=== PATIENT | male | born 1940 | race Caucasian/White ===

== ENCOUNTER 2017-07-31 19:14 | Inpatient (IN) | payer OTHER, MEDICARE ==
[~2017-07-31] VITALS: Ht 175.3 cm; Wt 71.9 kg
--- NOTE | 2017-07-31 19:27 | ED CARDIAC/CP/PALPITATIONS ---
History of Present Illness General Chief Complaint: Chest Pain Stated Complaint: SIB KELSEY FOR CHEST PAIN Source: patient, family Exam Limitations: no limitations Vital Signs & Intake/Output Vital Signs & Intake/Output Vital Signs Date Time Temp Pulse Resp B/P B/P Pulse O2 O2 Flow FiO2 Mean Ox Delivery Rate 08/01 1927 96.8 66 18 133/62 96 Room Air Allergies Coded Allergies: NO KNOWN ALLERGIES (08/22/15) Triage Nurses Notes Reviewed? yes Onset: Abrupt Duration: minute(s): Timing: recent history Quality/Severity: moderate, severe Location: central Radiation: neck Activities at Onset: none Prior Chest Pain/Card Workup: heart attack Nitro Today/Relief: 0.4 mg x 1, provided at home Associated Symptoms: dizziness HPI: 77-year-old gentleman history of coronary artery disease, status post multiple heart attacks, status post 7 stents, presents with several episodes of chest pain that began yesterday. He states that the chest discomfort is central and radiates to his neck. This morning he had an episode that was 8 out of 10 radiating to his neck, associated with dizziness and relieved completely with nitroglycerin sublingual 1. He noted several smaller episodes that self resolved. These episodes were precipitated with minimal exertion. He also noted several episodes of dizziness, especially when he stood up. Presently he has no chest pain, shortness of breath, fever, chills. He is otherwise well. Past History Travel History Traveled to [place] past 21 day No Medical History Any Pertinent Medical History? see below for history Cardiovascular: CAD Pneumonia Vaccine: 12/05/06 Influenza Vaccine: 12/05/06 Surgical History Surgical History: non-contributory Psychosocial History Who do you live with Spouse Services at Home None What is your primary language [place]orese Family History Hx Contributory? No Review of Systems Review of Systems Constitutional: Reports: no symptoms. EENTM: Reports: no symptoms. Respiratory: Reports: no symptoms. Cardiovascular: Reports: no symptoms. GI: Reports: no symptoms. Genitourinary: Reports: no symptoms. Musculoskeletal: Reports: no symptoms. Skin: Reports: no symptoms. Neurological/Psychological: Reports: no symptoms. Hematologic/Endocrine: Reports: no symptoms. Immunologic/Allergic: Reports: no symptoms. All Other Systems: Reviewed and Negative Physical Exam Physical Exam Cardiovascular: regular rate/rhythm Comments: Review of Systems - except as otherwise noted in HPI Physical Exam Physical Exam General Appearance: well developed/nourished, no apparent distress Head: atraumatic, normal appearance Eyes: Bilateral: normal appearance. Ears, Nose, Throat: normal pharynx, normal ENT inspection Neck: normal inspection, supple, full range of motion Respiratory: normal breath sounds, chest non-tender, no respiratory distress, quiet respiration, lungs clear Cardiovascular: regular rate/rhythm Gastrointestinal: normal bowel sounds, soft, non-tender, no organomegaly Back: normal inspection, normal range of motion Extremities: normal inspection, normal capillary refill, normal range of motion, no edema Neurologic/Psych: no motor/sensory deficits, awake, alert, oriented x 3 Skin: intact, normal color, warm/dry Core Measures ACS in differential dx? Yes CVA/TIA Diagnosis No Sepsis Present: No Sepsis Focused Exam Completed? No Progress Differential Diagnosis: AMI, unstable angina Plan of Care: Orders Procedure Date/time Status Nothing by Mouth 08/01 B Active Saline Lock 07/31 2109 Active Misc Message 07/31 2109 Active ED Holding Orders 07/31 2109 Active Admit to inpatient 07/31 2109 Active Vital Signs 07/31 2109 Active Code Status 07/31 2109 Active Add-on Test (ER Only) 07/31 1937 Active PROTHROMBIN TIME 07/31 1934 Complete TROPONIN LEVEL 07/31 1924 Complete LIPASE 07/31 1924 Complete HEPATIC FUNCTION PANEL 07/31 1924 Complete D-DIMER 07/31 1924 Complete CBC WITHOUT DIFFERENTIAL 07/31 1924 Complete BASIC METABOLIC PANEL 07/31 1924 Complete AMYLASE 07/31 1924 Complete EKG 07/31 1914 Active Laboratory Tests 07/31/171934: Anion Gap 9, Estimated GFR > 60, BUN/Creatinine Ratio 22.5, Glucose 211 H, Calcium 8.9, Total Bilirubin 0.4, Direct Bilirubin 0.2, AST 21, ALT 32, Alkaline Phosphatase 79, Troponin I 0.09, Total Protein 6.0 L, Albumin 3.4 L, Amylase 63, Lipase 122, PT 13.1 H, INR 1.20 H, D-Dimer High Sensitivty 275 H, CBC w Diff NO MAN DIFF REQ, RBC 4.04 L, MCV 96.7 H, MCH 32.1 H, MCHC 33.2, RDW 14.6 H, MPV 8.5, Gran % 64.9, Lymphocytes % 18.1 L, Monocytes % 14.0 H, Eosinophils % 2.7, Basophils % 0.3, Absolute Granulocytes 3.8, Absolute Lymphocytes 1.1 L, Absolute Monocytes 0.8 H, Absolute Eosinophils 0.2, Absolute Basophils 0 Diagnostic Imaging: Viewed by Me: Radiology Read. Discussed w/RAD: Radiology Read. CXR Impression: PATIENT: DYLAN HERNANDEZ PRESENT AGE: 77 PATIENT ACCOUNT NO: [id number] : 39 LOCATION: [facility] ORDERING PHYSICIAN: Ernesto Ralph MD SERVICE DATE: 07/31/17 EXAM TYPE: RAD - XRY- PORTABLE CHEST XRAY EXAMINATION: XR PORTABLE CHEST CLINICAL INFORMATION: Chest pain COMPARISON: 11/24/[address] scan TECHNIQUE: Portable AP view of the chest was obtained. FINDINGS: The cardiac size and mediastinal silhouette are within normal limits. Left pectoral dual-lead cardiac pacer is in place with leads projecting over the right atrium and right ventricle. Atherosclerotic calcifications of the aortic arch noted. There is increased pulmonary interstitial markings, predominantly in the subpleural areas and more in the lower lungs, which corresponds with the interstitial lung disease. Considering the differences in technique, the findings are fairly similar to November 2015 CT scan. There is no focal pulmonary consolidation. No pleural effusion. No pneumothorax. The visualized bony thorax is unremarkable. IMPRESSION: Interstitial lung disease without evidence of acute superimposed focal pulmonary consolidation. DICTATED BY: Diana Pierson MD DATE/TIME DICTATED:07/31/171957 LOSS PREVENTION RESEARCH ENGINEER:SWATHI DATE/TIME TRANSCRIBED:07/31/171957 CONFIDENTIAL, DO NOT COPY WITHOUT APPROPRIATE AUTHORIZATION. <Electronically signed in Other Vendor System> SIGNED BY: Diana Pierson MD 07/31/172004 Initial ED EKG: paced Departure Departure Disposition: STILL A PATIENT Condition: Stable Clinical Impression Primary Impression: Unstable angina Referrals: Clay HOLMAN,Dipak Lawson (PCP/Family) Departure Forms: Customer Survey General Discharge Information Comments 07/31/17, 21:06... discussed with dr. damico who affirms plan for admission. Admission Note Spoke With: Adri Navarro MD Documentation of Exam: Documentation of any treatments & extenuating circumstances including Concerns Regarding Discharge (functional status, medication knowledge or non-compliance, living conditions, etc.) that warrant an admission rather than observation: pt with known cad, s/p NC, stents, presenting with nitro responsive chest pain, merits admission for serial trops/ekgs, cards eval in am. pt is chest pain free in ED. Critical Care Note Critical Care Note Critical Care Time: non-applicable
--- NOTE | 2017-07-31 20:05 | RADIOLOGY REPORT ---
EXAMINATION: XR PORTABLE CHEST CLINICAL INFORMATION: Chest pain COMPARISON: 11/24/[address] scan TECHNIQUE: Portable AP view of the chest was obtained. FINDINGS: The cardiac size and mediastinal silhouette are within normal limits. Left pectoral dual-lead cardiac pacer is in place with leads projecting over the right atrium and right ventricle. Atherosclerotic calcifications of the aortic arch noted. There is increased pulmonary interstitial markings, predominantly in the subpleural areas and more in the lower lungs, which corresponds with the interstitial lung disease. Considering the differences in technique, the findings are fairly similar to November 2015 CT scan. There is no focal pulmonary consolidation. No pleural effusion. No pneumothorax. The visualized bony thorax is unremarkable. IMPRESSION: Interstitial lung disease without evidence of acute superimposed focal pulmonary consolidation.
[2017-07-31 20:18] LABS: PT 13.1 SEC (9.4-12.5)
[2017-07-31 20:31] LABS: ABSOLUTE BASOPHIL COUNT 0 /CUMM (0.0-0.2); ABSOLUTE EOSINOPHIL COUNT 0.2 /CUMM (0.0-0.7); ABSOLUTE GRANULOCYTE CT 3.8 /CUMM (1.4-6.5); ABSOLUTE LYMPH COUNT 1.1 /CUMM (1.2-3.4); ABSOLUTE MONOCYTE COUNT 0.8 /CUMM (0.10-0.60); BASOPHIL % 0.3 % (0.0-2.0); EOSINOPHIL % 2.7 % (0-5); GRANULOCYTE % 64.9 % (42.2-75.2); HEMATOCRIT 39.1 % (42-52); MEAN CORPUSCULAR HGB 32.1 PG (27.0-31.0); MEAN CORPUSCULAR HGB CONC 33.2 G/DL (33.0-37.0); MEAN CORPUSCULAR VOLUME 96.7 FL (80.0-94.0); MEAN PLATELET VOLUME 8.5 FL (7.4-10.4); PLATELET COUNT 135 /CUMM (130-400); RBC DISTRIBUTION WIDTH 14.6 % (11.5-14.5); RED BLOOD CELL CT 4.04 /CUMM (4.70-6.10); WHITE BLOOD CELL COUNT 5.9 /CUMM (4.8-10.8)
--- NOTE | 2017-07-31 23:04 | History & Physical ---
Codie HOLMAN,[facility] 07/31/17 6811: General Information and HPI History of Present Illness: Mr. Brown is a 69-year-old male with past medical history of coronary artery disease status post 3-4 MIs with 7 stents and pacemaker 3-4 months ago followed by Dr. Alonso and interstitial lung disease followed by Dr. Lewis who presents with chest pain. Patient says that for the past 2-3 weeks he has been getting pressure in his chest with exertion that radiates to his neck and is relieved by nitroglycerin. He gets this about 1-3 times per day. He also has some associated shortness of breath, a little pain, including in his jaw. He did not call his vp communications to report these conditions but wanted to get checked out before his trip on Tuesday. He reports some mucus in his throat but no abdominal pain, nausea, vomiting, diarrhea, dysuria, fever, chills, or palpitations. He normally goes to [place] for his hospitalizations and was last there 3 years ago. He is a former smoker and denies alcohol or drug use. He is a family history significant for myocardial infarctions at young ages. Allergies/Medications Allergies: Coded Allergies: NO KNOWN ALLERGIES (08/22/15) Home Med list Atorvastatin Calcium (Lipitor) 80 MG TABLET 1 TAB PO DAILY HLD (Reported) Citalopram Hydrobromide (Citalopram HBr) 20 MG TABLET 1 TAB PO DAILY Depression (Reported) Clopidogrel Bisulfate (Plavix) 75 MG TABLET 1 TAB PO DAILY HEART (Reported) Insulin NPL/Insulin Lispro (Humalog Mix 75-25 Vial) (Unknown Strength) VIAL ( Unknown Dose) DM (Reported) Isosorbide Mononitrate (Isosorbide Mononitrate ER) 30 MG TAB.ER.24H 1 TAB PO DAILY ANGINA (Reported) Lisinopril 10 MG TABLET 1 TAB PO DAILY HTN (Reported) Metoprolol Tartrate (Lopressor) 50 MG TABLET 1 TAB PO BID HTN (Reported) Start tonight The patient takes 50mg AT night and 75mg in the morning Pioglitazone HCl (Actos) 30 MG TABLET 1 TAB PO DAILY DM (Reported) Past History Travel History Traveled to [place] past 21 day No Medical History Cardiovascular: CAD Respiratory: pulmonary fibrosis Musculoskeletal: osteoarthritis Endocrine: diabetes Cancer(s): bladder cancer Pneumonia Vaccine: 12/05/06 Influenza Vaccine: 12/05/06 Surgical History Surgical History: non-contributory Past Family/Social History Psychosocial History Services at Home: None ETOH Use: denies use Illicit Drug Use: denies illicit drug use Review of Systems Review of Systems Constitutional: Reports: no symptoms. EENTM: Reports: no symptoms. Cardiovascular: Reports: see HPI. Respiratory: Reports: see HPI. GI: Reports: no symptoms. Genitourinary: Reports: no symptoms. Musculoskeletal: Reports: no symptoms. Skin: Reports: no symptoms. Neurological/Psychological: Reports: no symptoms. Hematologic/Endocrine: Reports: no symptoms. Immunologic/Allergic: Reports: no symptoms. All Other Systems: Reviewed and Negative Exam & Diagnostic Data Last 24 Hrs of Vital Signs/I&O Vital Signs Date Time Temp Pulse Resp B/P B/P Pulse O2 O2 Flow FiO2 Mean Ox Delivery Rate 07/31 2319 97.6 60 19 128/70 95 07/31 2248 97.0 62 18 119/58 95 Room Air 07/31 2120 97.1 62 18 118/59 96 Room Air 07/31 1928 96.8 66 18 133/62 96 Room Air Physical Exam General Appearance Alert, Oriented X3, Cooperative, No Acute Distress HEENT Atraumatic, PERRLA, EOMI Cardiovascular Regular Rate, Normal S1, Normal S2, pacemaker scar Lungs mild exp crackles Abdomen Normal Bowel Sounds, Soft, No Tenderness Extremities No Edema, Normal Pulses, No Tenderness/Swelling Last 24 Hrs of Labs/Rony: Laboratory Tests 07/31/17 1935: Anion Gap 9, Estimated GFR > 60, BUN/Creatinine Ratio 22.5, Glucose 211 H, Calcium 8.9, Total Bilirubin 0.4, Direct Bilirubin 0.2, AST 21, ALT 32, Alkaline Phosphatase 79, Troponin I 0.09, Total Protein 6.0 L, Albumin 3.4 L, Amylase 63, Lipase 122, PT 13.1 H, INR 1.20 H, D-Dimer High Sensitivty 275 H, CBC w Diff NO MAN DIFF REQ, RBC 4.04 L, MCV 96.7 H, MCH 32.1 H, MCHC 33.2, RDW 14.6 H, MPV 8.5, Gran % 64.9, Lymphocytes % 18.1 L, Monocytes % 14.0 H, Eosinophils % 2.7, Basophils % 0.3, Absolute Granulocytes 3.8, Absolute Lymphocytes 1.1 L, Absolute Monocytes 0.8 H, Absolute Eosinophils 0.2, Absolute Basophils 0 Assessment/Plan Assessment: Mr. Brown is a 69-year-old male with past medical history of coronary artery disease status post 3-4 MIs with 7 stents and pacemaker 3-4 months ago followed by Dr. Alonso and interstitial lung disease followed by Dr. Lewis who presents with chest pain. On presentation, vital signs were T 96.8, HR 66, RR 18, BP 133/62, saturating 96 % on room air. Laboratories are significant for hemoglobin 13.0, glucose 211, calcium 8.9, LFTs negative, troponin 0 0.09, INR 1.20, d-dimer 275. Chest x-ray shows interstitial lung disease with no consolidation. EKG: paced with isolated nonspecific changes He will be admitted to telemetry and treated for the following problems: 1. Stable angina 2. Macrocytic anemia #Stable angina: Patient presents with exertional chest pain relieved by nitroglycerin with a significant history of coronary disease. He does not get chest pain at rest. He will be admitted to telemetry, monitor his cardiac enzymes, and have cardiology see him in the morning. -EKG troponins 3 -Telemetry monitoring -Cardiology consult in the morning -Nitroglycerin paste every 6 hours as needed chest pain -TTE -Continue aspirin #Macrocytic anemia: No signs of active bleeding. -B12 and folate #Chronic medical problems: -Continue other home medications DVT prophylaxis with enoxaparin Heart healthy diet Full code As Ranked By This Provider Problem List: 1. Stable angina Core Measures/Misc (11/21) Acute Coronary Syndrome ACS Diagnosis: No Congestive Heart Failure Congestive Heart Failure Diagnosis No Cerebrovascular Accident CVA/TIA Diagnosis: No VTE (View Protocol) VTE Risk Factors Age>40 No Mechanical VTE Prophylaxis d/t N/A MechProphylax Ordered No VTE Pharm Prophylaxis d/t NA PharmProphylax ordered Sepsis (View protocol) Sepsis Present: No If YES complete Sepsis Event Note If YES complete Sepsis Event Note Irvin Sorenson 08/01/17 0231: Past Family/Social History Family History Relations & Conditions if any BROTHER (MA). SISTER (Colon Ca). Core Measures/Misc (11/21) Sepsis (View protocol) If YES complete Sepsis Event Note If YES complete Sepsis Event Note Resident Review Statement Resident Statement: examined this patient, discussed with campus recruiting intern, agreed with campus recruiting intern, reviewed images, amended to note Other Findings: This is a 77 years old gentleman with past medical history significant for hypertension hyperlipidemia diabetes mellitus and peripheral vascular disease status post stenting, extensive coronary artery disease with for myocardial infarction starting from age of 39 and 7 stents in total 13 record has an echocardiogram done in December 2007 showing ejection fraction of 60% and is presenting today with the 2-3 weeks history of chest pressure associated with shortness of breath that is exacerbated with exertion and relieved with nitroglycerin. Patient is thinking that they chest pressure is not related to previous myocardial infarction experiences he has had but has been concerned because he was planning to go to [facility] with his and did not want to go and and up in hospital. This patient has extensive family cardiac history with multiple relatives from his mother's side experiencing myocardial infarction from very at age. On arrival the patient was afebrile, heart rate of 66 respiration of 18 blood pressure 133/62 and saturating 96% on room air Physical examination: Patient seated comfortably on the bed not in acute distress very plesant alert and oriented to time place and person, denies any pain. CVS: Regular rate and rhythm no murmurs Neck: Scar from carotid repair on the right no distended JVD Chest: Valecron like CRACKLES, no sign of fluid overload Abdomen: Soft normal contour moving with respiration normal bowel sounds Lower limbs: No edema Labs: H&H H&H 13.0 and 39.1 creatinine of 0.8 initial troponin 0.08 but repeat later 0.13 negative d-dimer of 275 EKG Paced rhythm CXR shows interstitial lung disease without evidence of acute superimposed focal pulmonary consolidation Assessment and plan This is a 77 years old with extensive cardiac history multiple myocardial infarctions with multiple stents who was presented with 2-3 weeks history of chest pressure with mild pain radiating to the neck and on the second troponin found to be elevated. Problem list Stable angina Elevated troponin Diabetes mellitus Admit to telemetry floor, continuous cardiac monitoring Vital signs every shift Troponin and EKG continue to trend till when it plateaus Stool guaiac and start heparin drip Start home medication metoprolol 50 mg at night and 75 mg in the morning, lisinopril 10 mg, isosorbide mononitrate 30 mg clopidogrel 75 mg atorvastatin 80 mg Repeat echocardiogram Cardiology consult a.m. Patient is full code Ramon HOLMAN, [facility] 08/01/17 0351: Core Measures/Misc (11/21) Sepsis (View protocol) If YES complete Sepsis Event Note If YES complete Sepsis Event Note Attending MD Review Statement Attending Statement Attending MD Statement: examined this patient, discuss w/resident/PA/RAIL SIGNAL DESIGNER, agreed w/resident/PA/RAIL SIGNAL DESIGNER, discussed with family, reviewed images, amended to note Attending Assessment/Plan: 77 yo M with h/o idiopathic pulmonary fibrosis, severe vasculopathy with CAD s/p stents x7, PVA s/p bilateral femoral stents, right CEA, DM, HTN, s/p recent pacemaker, bladder cancer, is here for evaluation of substernal chest pressure sensation radiating to the neck, especially with exertion and relieved with nitro. It has been ongoing for over 1 week and has been increasing in frequency. He had an episode one night prior that did not let him sleep. He feels the episode lasted atleast 10 minutes, was associated with shortness of breath, but denies palpitations or lightheadedness. He feels the pain is not similar to previous MA, but could be acid reflux but it is very distressing to him and was not relieved with tums or mylanta. Patient was chest pain free at the time of my evaluation. Vitals stable. Exam as above. Labs: macrocytic anemia, INR 1.20, troponin 0.09 - -> 0.13. CXR: Interstitial lung disease without evidence of acute superimposed focal pulmonary consolidation. EKG: paced with isolated nonspecific changes. Echo (2006): EF > 60%, LVH. Assessment and plan: 1. Unstable angina now ruled in for NSTEMI 2. History of CAD s/p stents 3. History of PVD 4. Recent pacemaker placement 5. Essential hypertension - Admit to Telemetry - Watch for arrhythmias - Serial EKG and troponin until peak - Obtain echocardiogram - Cardio consult - Given high ROHAN score and known risk factors, will initiate IV heparin - Continue aspirin, plavix, metoprolol and lipitor - Change imdur to nitro paste Q6 - Check lipid panel, TSH, free T4, HbA1c - NPO overnight in case he needs cardiac cath - Accucheks, insulin NPO SS, hold actos - Resume lisinopril if BP tolerates DVT ppx IV heparin. Full code.
[2017-07-31 23:19] VITALS: BP 128/70
--- NOTE | 2017-07-31 23:39 | Admission Certification ---
Admission Certification Certification Statement - As attending physician, I certify that at the time of - admission, based on clinical presentation, severity of - symptoms, need for further diagnostic testing and - therapeutic interventions, and risk of adverse outcomes - without in-hospital treatment, in my clinical assessment, - this patient requires an acute hospital stay for a minimum - of two nights or longer. I have also considered psychsocial - factors such as support system, advanced age, financial - issues, cognitive issues, and failed out-patient treatments, - past re-admission history, safety of patient, and lack of - compliance as applicable. Specific rationale supporting this admission is: Unstable angina, now ruled in to NSTEMI.
[2017-07-31] MEDS ORDERED: ISOSORBIDE MONO30 M1 PO (23:55)
[2017-07-31] MEDS ORDERED: ACTOS30 M1 PO (23:56)
[2017-07-31] MEDS ORDERED: LIPITOR80 M1 PO (23:56)
[2017-07-31] MEDS ORDERED: LISINOPRIL10 M1 PO (23:57)
[2017-07-31] MEDS ORDERED: CITALOPRAM HBR20 MG PO (23:57)
[2017-07-31] MEDS ORDERED: PLAVIX75 M1 PO (23:57)
[2017-07-31] MEDS ORDERED: HUMALOG MI100 UNIT/1 (23:58)
[2017-08-01] MEDS ORDERED: LOPRESSOR50 M1 PO (00:51)
--- NOTE | 2017-08-01 02:18 | Event Note ---
Event Note Event Note: Patient's second round of troponins are positive at 0.13. Given his high risk with multiple MIs and stents in the past we will start the patient on heparin. He is guaiac negative. Cardiology will be called in the AM.
[2017-08-01 06:42] VITALS: BP 140/78
--- NOTE | 2017-08-01 08:15 | PN- Housestaff ---
Jose Roberto HOLMAN,[facility] 08/01/17 0815: Subjective Follow-up For: Chest Pain Tele-Events Since Last Visit: paced rhythm with HR 62-67 with occasional PVCs Subjective: Patient seen and examined. States he gets chest pain when he walks to the bathroom but subsides after he lies back in bed. No other complaints. Review of Systems Constitutional: Reports: no symptoms. Objective Last 24 Hrs of Vital Signs/I&O Vital Signs Date Time Temp Pulse Resp B/P B/P Pulse O2 O2 Flow FiO2 Mean Ox Delivery Rate 08/01 1435 97.8 60 20 120/64 95 Room Air 08/01 1130 68 144/60 100 Room Air 08/01 0642 97.6 68 20 140/78 96 Room Air 07/31 2319 97.6 60 19 128/70 95 07/31 2248 97.0 62 18 119/58 95 Room Air 07/31 2120 97.1 62 18 118/59 96 Room Air 07/31 1928 96.8 66 18 133/62 96 Room Air Intake & Output 08/01 1600 08/01 0800 08/01 0000 Intake Total 828 227 0 Output Total 500 300 Balance 328 -73 0 Intake, IV 348 127 Intake, Oral 480 100 0 Output, Urine 500 300 Patient 166 lb Weight Weight Bed scale Measurement Method Physical Exam General Appearance: Alert, Oriented X3, Cooperative, Mild Distress Skin: No Rashes, No Breakdown Skin Temp/Moisture Exam: Warm/Dry Sepsis Skin Exam (color): Normal for Ethnicity HEENT: Atraumatic Cardiovascular: Normal S1, Normal S2, No Murmurs Lungs: Clear to Auscultation, Normal Air Movement Abdomen: Soft, No Tenderness Neurological: Normal Speech Extremities: No Edema Last 24 Hrs of Lab/Rony Results Last 24 Hrs of Labs/Mics: Laboratory Tests 08/01/17 0835: APTT 60 H 08/01/17 0740: Troponin I 0.10 08/01/17 0740: Hemoglobin A1c 8.0 H, Triglycerides 81, Cholesterol 116, LDL Cholesterol, Calc 62 L, HDL Cholesterol 38 L, Cholesterol/HDL Ratio 3, TSH 1.530, Free T4 0.97 08/01/17 0045: Troponin I 0.13 *H 07/31/17 1935: Anion Gap 9, Estimated GFR > 60, BUN/Creatinine Ratio 22.5, Glucose 211 H, Calcium 8.9, Total Bilirubin 0.4, Direct Bilirubin 0.2, AST 21, ALT 32, Alkaline Phosphatase 79, Troponin I 0.09, Total Protein 6.0 L, Albumin 3.4 L, Amylase 63, Lipase 122, Vitamin B12 805, Folate 10.8, PT 13.1 H, INR 1.20 H, D-Dimer High Sensitivty 275 H, CBC w Diff NO MAN DIFF REQ, RBC 4.04 L, MCV 96.7 H, MCH 32.1 H, MCHC 33.2, RDW 14.6 H, MPV 8.5, Gran % 64.9, Lymphocytes % 18.1 L , Monocytes % 14.0 H, Eosinophils % 2.7, Basophils % 0.3, Absolute Granulocytes 3.8, Absolute Lymphocytes 1.1 L, Absolute Monocytes 0.8 H, Absolute Eosinophils 0.2, Absolute Basophils 0 Assessment/Plan Assessment: Mr. Brown is a 69-year-old male with past medical history of coronary artery disease status post 3-4 MIs with 7 stents and pacemaker 3-4 months ago followed by Dr. Alonso and interstitial lung disease followed by Dr. Lewis who presented to the ED with chest pain. Assessment: 1. Unstable Angina 2. Elevated Troponins 3. History of CAD 4. History of Pacemaker placement Plan: * Continue monitoring on telemetry for now. * He had a modest elevation in his troponin last night. * Continue IV Heparin for now. * He has symptoms of stable angina. Will start him on NTG patch 0.6mg/hr for 12 hours. * Start aspirin 325mg, continue plavix, metoprolol 50mg BID and Lisinopril * Echocardiogram - pending. * Will be NPO overnight for possible stress test tomorrow. * Diet: Heart Healthy * DVT Prophylaxis: IV Heparin * Code: Full Code Problem List: 1. Stable angina Pain Ratin Pain Location: none Pain Goal: Remain pain free Pain Plan: none Tomorrow's Labs & Rationales: MARYLIN OSBORNE MD,[facility] 08/01/17 1151: Attending MD Review Statement Attending Statement Attending MD Statement: examined this patient, discuss w/resident/PA/DRAW FRAME TENDER, agreed w/resident/PA/DRAW FRAME TENDER, reviewed EMR data (avail), discussed with nursing, discussed with case mgmt, reviewed images, amended to note Attending Assessment/Plan: 77 yr old abilio M with PMH significant for IPF, severe vasculopath with CAD s /p stents x7, PVD s/p bilateral femoral stents, right CEA, DM, HTN, s/p recent pacemaker, is being admitted to the tele floor for substernal chest pressure radiating to the neck, and relieved with nitro. EKG is paced, and given elevated troponins and extensive coronary artery disease and was cleared disease was started on IV heparin as per ACS protocol.He was given aspirin and Plavix. Patient follows up with Dr. Adam Prather as his sales manager [place] and has been further recommended cardiac catheterization given patient on 3 anti-anginal medications. He was seen and examined on the bedside, reported continuous minimal chest discomfort but bearable. Cardiology consult appreciated. We will put the patient on nitroglycerin patch 0.6 mg for 12 hours daily, continue with aspirin 325 mg and Plavix 75 mg along with IV heparin, continue with metoprolol 50 twice a day and lisinopril 20 mg daily, will add Lipitor 80 mg, get an echo and will keep him nothing by mouth from midnight for possible cath in a.m.
[2017-08-01 09:55] LABS: PTT 60 SEC (25-37)
--- NOTE | 2017-08-01 10:08 | Cons- Cardiology ---
General Information and HPI Consulting Request Date of Consult: 08/01/17 Requested By: Ramon HOLMAN,Adri History of Present Illness: Mr. Brown is a 69 year old male with history of hypertension, dyslipidemia, diabetes and peripheral vascular disease. He also carries a history of coronary artery disease 3-4 prior MN's and multiple stents. Finally, this patient had syncope and had a permanent pacemaker placed about 4 monthe ago. Over the past month this patient has noted a new chest discomfort which he opted not to complain about. This discomfort has become worse and over the past week essentially any physical activity, including mild activity will be met with a mild midsternal chest pressure radiating toward his neck and jaw. This discomfort lasted about 20 minutes yesterday. It was relieved by multiple SL NTG with consequent lightheadednss. He does have a single borderline elevated troponin. The discomfort is associated with shortness of breath and occasional nausea and palpitations. It should be noted that this patient also has interstitial lung disease that is followed by Dr. Lewis. Allergies/Medications Allergies: Coded Allergies: NO KNOWN ALLERGIES (08/22/15) Home Med List: Atorvastatin Calcium (Lipitor) 80 MG TABLET 1 TAB PO DAILY HLD (Reported) Citalopram Hydrobromide (Citalopram HBr) 20 MG TABLET 1 TAB PO DAILY Depression (Reported) Clopidogrel Bisulfate (Plavix) 75 MG TABLET 1 TAB PO DAILY HEART (Reported) Insulin NPL/Insulin Lispro (Humalog Mix 75-25 Vial) (Unknown Strength) VIAL ( Unknown Dose) DM (Reported) Isosorbide Mononitrate (Isosorbide Mononitrate ER) 30 MG TAB.ER.24H 1 TAB PO DAILY ANGINA (Reported) Lisinopril 10 MG TABLET 1 TAB PO DAILY HTN (Reported) Metoprolol Tartrate (Lopressor) 50 MG TABLET 1 TAB PO BID HTN (Reported) Start tonight The patient takes 50mg AT night and 75mg in the morning Pioglitazone HCl (Actos) 30 MG TABLET 1 TAB PO DAILY DM (Reported) Review of Systems Review of Systems: A review of systems is unremarkable other than the above. Past History Travel History Traveled to [place] past 21 day No Medical History Blood Transfusion Hx: Yes Neurological: NONE EENT: NONE Cardiovascular: CAD, hypertension, hyperlipidemia, myocardial infarction, multiple stents Respiratory: pulmonary fibrosis Gastrointestinal: NONE Hepatic: NONE Renal: NONE Musculoskeletal: osteoarthritis Psychiatric: NONE Endocrine: diabetes Blood Disorders: NONE Cancer(s): bladder cancer (s/p multiple procedures) ENTRY LEVEL ACCOUNTING CLERK/Reproductive: NONE Surgical History Surgical History: pacemaker, right carotid endarterectomy, stent to right SFA and stent to left common femoral artery, penile implant Family History Relations & Conditions If Any: BROTHER ([place]). SISTER ([place]). Psychosocial History Where Do You Live? Home Services at Home: None Smoking Status: Former Smoker ETOH Use: denies use Illicit Drug Use: denies illicit drug use Exam & Diagnostic Data Vital Signs and I&O Vital Signs Date Time Temp Pulse Resp B/P B/P Pulse O2 O2 Flow FiO2 Mean Ox Delivery Rate 08/01 0642 97.6 68 20 140/78 96 Room Air 07/31 2319 97.6 60 19 128/70 95 07/31 2248 97.0 62 18 119/58 95 Room Air 07/31 2120 97.1 62 18 118/59 96 Room Air 07/31 1928 96.8 66 18 133/62 96 Room Air Intake & Output 08/01 1600 08/01 0800 08/01 0000 07/31 1600 07/31 0800 07/31 0000 Intake Total 227 0 Output Total Balance 227 0 Intake, IV 127 Intake, Oral 100 0 Patient 166 lb Weight Weight Bed scale Measurement Method Physical Exam: General: WD/WN male in NAD; alert and oriented x 3 HEENT: NC/AT, PERRL, EOMI Neck: no JVD, no carotid bruit Heart: RRR with 2/6 systolic murmur Lungs: crackles at bases bilaterally Abdomen: soft, NT, +ve bowel sounds Extremiities: no edema Diagnostic Data EKG Results paced rhythm Assessment/Plan Assessment/Plan * This patient has symptoms consistent with unstable angina with a single borderline troponin. He is currently on three antianginals without relief and a cardiac catheterization is recommended. For now we will begin a NTG patch at 0.6mg/hr for twelve hours daily. Begin aspirin 325mg daily, plavix 75mg daily and IV heparin. Continue Metoprolol 50mg BID and Lisinopril at 20mg daily. He should also be on Lipitor 80mg daily. * Obtain an echocardiogram. * Keep NPO except for medications after midnight. Consult Acknowledgment - Thank you for your consult request.
[2017-08-01 11:30] VITALS: BP 144/60
[2017-08-01 14:35] VITALS: BP 120/64
[2017-08-01 18:39] LABS: PTT > 120 SEC (25-37)
[2017-08-01 22:10] VITALS: BP 118/78
[2017-08-02 02:14] LABS: PTT 57 SEC (25-37)
[2017-08-02 06:57] VITALS: BP 126/60
--- NOTE | 2017-08-02 07:05 | PN- Housestaff ---
Jose Roberto HOLMAN,[facility] 08/02/17 0705: Subjective Follow-up For: Unstable Angina Tele-Events Since Last Visit: Sinus Paced with HR 62-70. No overnight events. Subjective: Patient seen and examined. States he feels better with the nitro patch on. He has had no further symptoms of chest pain. Does not offer any other complaints at this time. Review of Systems Constitutional: Reports: no symptoms. Objective Last 24 Hrs of Vital Signs/I&O Vital Signs Date Time Temp Pulse Resp B/P B/P Pulse O2 O2 Flow FiO2 Mean Ox Delivery Rate 08/02 0657 98.2 72 12 126/60 95 Room Air 08/01 2210 98.8 72 20 118/78 93 08/01 2010 74 132/66 08/01 1435 97.8 60 20 120/64 95 Room Air 08/01 1130 68 144/60 100 Room Air Intake & Output 08/02 0800 08/02 0000 08/01 1600 Intake Total 150 828 Output Total 800 Balance 150 28 Intake, IV 150 348 Intake, Oral 0 480 Output, Urine 800 Patient 158 lb Weight Physical Exam General Appearance: Alert, Oriented X3, Cooperative, Mild Distress Skin: No Rashes, No Breakdown Skin Temp/Moisture Exam: Warm/Dry Sepsis Skin Exam (color): Normal for Ethnicity HEENT: Atraumatic Cardiovascular: Normal S1, Normal S2, No Murmurs Lungs: Clear to Auscultation, Normal Air Movement Abdomen: Soft, No Tenderness Neurological: Normal Speech Extremities: No Edema Last 24 Hrs of Lab/Rony Results Last 24 Hrs of Labs/Mics: Laboratory Tests 08/02/17 0620: Anion Gap 8, Estimated GFR > 60, BUN/Creatinine Ratio 22.5, APTT 69 H, CBC w Diff NO MAN DIFF REQ, RBC 3.91 L, MCV 95.6 H, MCH 32.4 H, MCHC 33.9, RDW 15.1 H, MPV 8.8, Gran % 62.2, Lymphocytes % 20.7, Monocytes % 13.6 H, Eosinophils % 3.0, Basophils % 0.5, Absolute Granulocytes 3.7, Absolute Lymphocytes 1.2, Absolute Monocytes 0.8 H, Absolute Eosinophils 0.2, Absolute Basophils 0 08/02/17 0150: APTT 57 H 08/01/17 1735: APTT > 120 *H Assessment/Plan Assessment: Mr. Brown is a 69-year-old male with past medical history of coronary artery disease status post 3-4 MIs with 7 stents and pacemaker 3-4 months ago followed by Dr. Alonso and interstitial lung disease followed by Dr. Lewis who presented to the ED with chest pain. Assessment: 1. Unstable Angina 2. Elevated Troponins 3. History of CAD 4. History of Pacemaker placement Plan: * Patient to be transferred to [facility] for cardiac cath. * Continue IV Heparin * Continue NTG patch 0.6mg/hr for 12 hours. * Continue aspirin 325mg, continue plavix, metoprolol 50mg BID and Lisinopril * Diet: Heart Healthy * DVT Prophylaxis: IV Heparin * Code: Full Code Problem List: 1. Unstable angina Pain Ratin Pain Location: N/A Pain Goal: Remain pain free Pain Plan: none Tomorrow's Labs & Rationales: none Michelle HOLMAN,Tavia 08/02/17 1021: Attending MD Review Statement Attending Statement Attending MD Statement: examined this patient, discuss w/resident/PA/LINE RIDER, agreed w/resident/PA/LINE RIDER, reviewed EMR data (avail), discussed with nursing, discussed with case mgmt, reviewed images Attending Assessment/Plan: Patient is chest pain-free right now. He feels that because of a Nitropatch and the fact that he is not exerting himself. He was 77-year-old with known vascular disease with coronary artery disease and stents- cardiac, he has peripheral vascular disease with bilateral femoral stents, diabetes, hypertension, CEA, interstitial lung disease and recent pacemaker. He is here with what appears to be a unstable angina and likely a non-ST elevation ID given the troponin of 0.13. We have him on aspirin, Plavix and IV heparin and we spoke to the patients transporter, he is going to be transferred for a cardiac cath.
[2017-08-02 07:47] LABS: ABSOLUTE BASOPHIL COUNT 0 /CUMM (0.0-0.2); ABSOLUTE EOSINOPHIL COUNT 0.2 /CUMM (0.0-0.7); ABSOLUTE GRANULOCYTE CT 3.7 /CUMM (1.4-6.5); ABSOLUTE LYMPH COUNT 1.2 /CUMM (1.2-3.4); ABSOLUTE MONOCYTE COUNT 0.8 /CUMM (0.10-0.60); BASOPHIL % 0.5 % (0.0-2.0); GRANULOCYTE % 62.2 % (42.2-75.2); HEMATOCRIT 37.4 % (42-52); MEAN CORPUSCULAR HGB 32.4 PG (27.0-31.0); MEAN CORPUSCULAR HGB CONC 33.9 G/DL (33.0-37.0); MEAN CORPUSCULAR VOLUME 95.6 FL (80.0-94.0); MEAN PLATELET VOLUME 8.8 FL (7.4-10.4); PLATELET COUNT 129 /CUMM (130-400); RBC DISTRIBUTION WIDTH 15.1 % (11.5-14.5); RED BLOOD CELL CT 3.91 /CUMM (4.70-6.10); WHITE BLOOD CELL COUNT 5.9 /CUMM (4.8-10.8)
[2017-08-02 08:43] LABS: PTT 69 SEC (25-37)
[2017-08-02 09:26] VITALS: BP 126/60
--- NOTE | 2017-08-02 09:35 | Discharge Summary ---
Visit Information Visit Dates Admission Date: 07/31/17 Discharge Date: 08/02/17 Hospital Course Course Attending Physician: Michelle HOLMAN,Tavia Kaiser Primary Care Physician: Clay HOLMAN,Dipak Lawson Consulting Request: Consulting Specialty: Cardiology Hospital Course: 69/M with history of ILD, HTN, dyslipidemia, IDDM, PVD and CAD with multiple prior [place]'s and 7 stents. He also had the pacemaker placed 4 months ago because of syncopal. He presented this time with chief complaint of one month of new progressive chest discomfort. The discomfort worsened significantly over the past week. He reports that his chest discomfort is worse with activity and he described as a midsternal pressure radiating towards the neck. Early on the day of admission he had an episode of chest pain that lasted for about 20 minutes. He was found to have a single borderline elevated troponin up to 0.13. His chest pain is usually associated with dyspnea, palpitation, and nausea. Given his extensive cardiac history and symptom that was not relieved with 3 antianginals medications, soccer referee recommended cardiac catheterization. During this admission he was continued on aspirin 325 mg daily, Plavix 75 mg daily, IV heparin drip, lisinopril, metoprolol 50 mg twice a day. The patient was kept nothing by mouth starting midnight and he will be transfer to [facility] today for catheterization and possible angioplasty, as per soccer referee's recommendations. Allergies: Coded Allergies: NO KNOWN ALLERGIES (08/22/15) Disposition Summary Disposition Principal Diagnosis: Unstable angina Additional Diagnosis: Hypertension Hyperlipidemia Status post pacemaker Status post carotid endarterectomy Stent to right SFA and stent to left common femoral artery Discharge Disposition: other general hospital Discharge Instructions General Discharge Information Code Status: Full Code Patient's Diet: Heart healthy diet Patient's Activity: As tolerated after the cath is done Follow-Up Instructions/Appts: Please follow-up with primary care doctor within 1 week Please follow-up with soccer referee within 1 week Medications at Discharge Discharge Medications: Continue taking these medications: Isosorbide Mononitrate (Isosorbide Mononitrate ER) 30 MG TAB.ER.24H 1 Tablet ORAL DAILY Pioglitazone HCl (Actos) 30 MG TABLET 1 Tablet ORAL DAILY Atorvastatin Calcium (Lipitor) 80 MG TABLET 1 Tablet ORAL DAILY Citalopram Hydrobromide (Citalopram HBr) 20 MG TABLET 1 Tablet ORAL DAILY Lisinopril (Lisinopril) 10 MG TABLET 1 Tablet ORAL DAILY Clopidogrel Bisulfate (Plavix) 75 MG TABLET 1 Tablet ORAL DAILY Insulin NPL/Insulin Lispro (Humalog Mix 75-25 Vial) (Unknown Strength) VIAL Unknown Dose Metoprolol Tartrate (Lopressor) 50 MG TABLET 1 Tablet ORAL TWICE DAILY Instructions: Start tonight The patient takes 50mg AT night and 75mg in the morning Start taking the following new medications: Aspirin (Aspirin*) 325 MG TABLET 1 Tablet ORAL DAILY Qty = 30 No Refills Nitroglycerin (Nitroglycerin Patch) 0.6 MG/HOUR PATCH.TD24 1 Patch PATCH EVERY 12 HOURS Qty = 15 No Refills Copies To: Philipp HOLMAN,Mikhail Raymond; Clay HOLMAN,Dipak Lawson
[2017-08-02 09:36] VITALS: BP 118/30
--- NOTE | 2017-08-02 10:11 | PN- Cardiology ---
Subjective Subjective: Patient states that he experienced some chest pain walking to the bathroom. He denies any pain at rest. Review of Systems: Eyes no blurred or double vision Ears no deafness or ringing Nose and throat no recurrent sinusitis Lungs per history of present illness Heart per history of present illness Abdomen no nausea vomiting Musculoskeletal occasional muscle and joint pains Psych no anxiety or depression Neuro without recurrent headache or seizures Endocrine no heat or cold intolerance Objective Vital Signs and I&Os Vital Signs Date Time Temp Pulse Resp B/P B/P Pulse O2 O2 Flow FiO2 Mean Ox Delivery Rate 08/02 925 72 126/60 08/02 09 72 126/60 08/02 0657 98.2 72 12 126/60 95 Room Air 08/01 2210 98.8 72 20 118/78 93 08/01 2009 74 132/66 08/01 1435 97.8 60 20 120/64 95 Room Air 08/01 1130 68 144/60 100 Room Air Intake & Output 08/02 1600 08/02 0800 08/02 0000 08/01 1600 08/01 0800 08/01 0000 Intake Total 150 828 227 0 Output Total 500 300 Balance 150 328 -73 0 Intake, IV 150 348 127 Intake, Oral 0 480 100 0 Output, Urine 500 300 Patient 158 lb 166 lb Weight Weight Bed scale Measurement Method Physical Exam: Patient is a well-developed well-nourished male appearing in no acute distress HEENT is unremarkable Neck is supple there is no JVD Lungs are clear Heart regular rhythm S1 and S2 are normal no murmurs gallops or rubs Abdomen bowel sounds positive Extremities without edema Skin warm and dry Neuro without focal deficits Psych operative Lymphatic no adenopathy Current Medications: Current Medications Sig/Gerardo Start time Last Medication Dose Route Stop Time Status Admin Aspirin 325 MG ONCE ONE 08/01 1130 DC 08/01 PO 08/01 1131 1136 Aspirin Buffered 325 MG DAILY 08/02 09 AC 08/02 PO 0925 Aspirin Buffered 81 MG DAILY 08/01 09 DC PO Atorvastatin Calcium 80 MG 1700 08/01 1700 AC 08/01 PO 1733 Citalopram 20 MG DAILY 08/01 09 AC 08/02 Hydrobromide PO 0925 Clopidogrel Bisulfate 75 MG DAILY 08/01 09 AC 08/02 PO 0925 Dextrose/Sodium 1,000 ML Q10H 08/01 0645 DC 08/01 Chloride IV 0658 Heparin Sodium 2,157 UNIT BOLUS ONE 08/02 0230 DC 08/02 (Porcine) IV 08/02 0231 0248 Heparin Sodium 5,000 UNIT .STK-MED ONE 08/01 1120 DC (Porcine) IV 08/01 1121 Heparin Sodium 2,259 UNIT ONCE ONE 08/01 1116 DC 08/01 (Porcine) IV 08/01 1117 1136 Heparin Sodium 25,000 UNIT Q24H 08/01 0215 AC 08/02 (Porcine) IV 0929 Sodium Chloride 500 ML Insulin Aspart 0 TIDAC 08/01 1200 AC 08/01 SC 1733 Insulin Human Regular 0 Q6 08/01 0605 DC 08/01 SC 0658 Lisinopril 10 MG DAILY 08/01 0900 AC 08/02 PO 0926 Metoprolol Tartrate 50 MG BID 08/01 0900 AC 08/02 PO 0925 Nitroglycerin 0.6 MG DAILY 08/01 1118 AC 08/02 TOP 0926 Nitroglycerin 0.5 GM Q6 08/01 0627 AR 08/01 TOP 0706 Results Last 48 Hrs of Labs/Mics: Laboratory Tests 08/02/17 0620: Anion Gap 8, Estimated GFR > 60, BUN/Creatinine Ratio 22.5, APTT 69 H, CBC w Diff NO MAN DIFF REQ, RBC 3.91 L, MCV 95.6 H, MCH 32.4 H, MCHC 33.9, RDW 15.1 H, MPV 8.8, Gran % 62.2, Lymphocytes % 20.7, Monocytes % 13.6 H, Eosinophils % 3.0, Basophils % 0.5, Absolute Granulocytes 3.7, Absolute Lymphocytes 1.2, Absolute Monocytes 0.8 H, Absolute Eosinophils 0.2, Absolute Basophils 0 08/02/17 0150: APTT 57 H 08/01/17 1735: APTT > 120 *H 08/01/17 0835: APTT 60 H 08/01/17 0740: Troponin I 0.10 08/01/17 0740: Hemoglobin A1c 8.0 H, Triglycerides 81, Cholesterol 116, LDL Cholesterol, Calc 62 L, HDL Cholesterol 38 L, Cholesterol/HDL Ratio 3, TSH 1.530, Free T4 0.97 08/01/17 0045: Troponin I 0.13 *H 07/31/17 1935: Anion Gap 9, Estimated GFR > 60, BUN/Creatinine Ratio 22.5, Glucose 211 H, Calcium 8.9, Total Bilirubin 0.4, Direct Bilirubin 0.2, AST 21, ALT 32, Alkaline Phosphatase 79, Troponin I 0.09, Total Protein 6.0 L, Albumin 3.4 L, Amylase 63, Lipase 122, Vitamin B12 805, Folate 10.8, PT 13.1 H, INR 1.20 H, D-Dimer High Sensitivty 275 H, CBC w Diff NO MAN DIFF REQ, RBC 4.04 L, MCV 96.7 H, MCH 32.1 H, MCHC 33.2, RDW 14.6 H, MPV 8.5, Gran % 64.9, Lymphocytes % 18.1 L , Monocytes % 14.0 H, Eosinophils % 2.7, Basophils % 0.3, Absolute Granulocytes 3.8, Absolute Lymphocytes 1.1 L, Absolute Monocytes 0.8 H, Absolute Eosinophils 0.2, Absolute Basophils 0 Telemetry reviewed sinus rhythm Assessment/Plan Assessment/Plan 1. Coronary disease by history now with unstable angina. He had one borderline troponin 2. Hypertension 3. Hyperlipidemia 4. Status post pacemaker 5. Status post carotid endarterectomy 6. Stent to right SFA and stent to left common femoral artery Recommendations 1. Continue aspirin, Plavix, lisinopril, and metoprolol 2. Add long discussion with the patient and his son regarding plan of care. I discussed possibly charge without further intervention but I strongly advise against that. We also discussed possibly obtaining a stress test but since he is experiencing anginal with minimal exertion since his already performing a stress test. I therefore recommended cardiac catheterization and both he and his son are in agreement. 3. Plan is for transfer to [facility] today for catheterization and possible angioplasty. Continue telemetry? Yes
--- NOTE | 2017-08-02 11:24 | Patient Discharge Instructions ---
Discharge Instructions General Discharge Information You were seen/treated for: Unstable Angina Special Instructions: Please follow up with your PCP and system sales consultant within one week of discharge. Diet Continue normal diet: Yes Recommended Diet: Heart Healthy Activity Full Activity/No Limits: Yes Acute Coronary Syndrome Inclusion Criteria At DC or during hospital stay patient has or had the following: ACS DIAGNOSIS No Discharge Core Measures Meds if any: Prescribed or Continued at Discharge Meds if any: NOT Prescribed or Continued at Discharge Congestive Heart Failure Inclusion Criteria At DC or during hospital stay patient has or had the following: CHF DIAGNOSIS No Discharge Core Measures Meds if any: Prescribed or Continued at Discharge Meds if any: NOT Prescribed or Continued at Discharge Cerebrovascular accident Inclusion Criteria At DC or during hospital stay patient has or had the following: CVA/TIA Diagnosis No Discharge Core Measures Meds if any: Prescribed or Continued at Discharge Meds if any: NOT Prescribed or Continued at Discharge Venous thromboembolism Inclusion Criteria VTE Diagnosis No VTE Type NONE VTE Confirmed by (Test) NONE Discharge Core Measures - Per Current guidelines, there needs to be overlap - treatment for the first 5 days of Warfarin therapy. - If discharged on Warfarin prior to 5 days of - overlap therapy, the patient will need to be - assessed for post discharge needs including - *Post discharge parental anticoagulation - *Warfarin and/or parental anticoagulation education - *Follow up date to check INR post discharge At least 5 days overlap therapy as Inpatient No Meds if any: Prescribed or Continued at Discharge Note: Overlap Therapy is Warfarin and Anticoagulant Meds if any: NOT Prescribed or Continued at Discharge
[2017-08-02] MEDS ORDERED: ASPIRIN325 M2 PO (11:26)
[2017-08-02] MEDS ORDERED: NITROGLYCERIN1 EAC1 PAT (11:26)
== END 2017-08-02 12:10 | disposition short-term general hospital (02) | DRG 303 ==
LOC: ERH 19:14 → ERHI 21:10 → ENRESERV 22:35 → 1NO 23:03 → ENPENDDIS 08-02 11:36 → 1NO 08-02 12:10
PROVIDERS: Internal Medicine; Pediatrics; Preventive Medicine Public Health & General Preventive Medicine; Student in an Organized Health Care Education/Training Program
DX: I25.110 Atherosclerotic heart disease of native coronary artery with unstable angina pectoris (principal); J84.9 Interstitial pulmonary disease, unspecified; E11.9 Type 2 diabetes mellitus without complications; D53.9 Nutritional anemia, unspecified; I25.2 Old myocardial infarction; E78.5 Hyperlipidemia, unspecified; I73.9 Peripheral vascular disease, unspecified; I49.3 Ventricular premature depolarization; Z82.49 Family history of ischemic heart disease and other diseases of the circulatory system; Z87.891 Personal history of nicotine dependence; Z79.4 Long term (current) use of insulin; I10 Essential (primary) hypertension; Z95.0 Presence of cardiac pacemaker; Z85.51 Personal history of malignant neoplasm of bladder; Z95.5 Presence of coronary angioplasty implant and graft
CPT/HCPCS: 1NP; 36592; 71045; 82436; 93005; 93010; J1644; J1650; J1815; J7042